=== PATIENT | female | born 2000 | race Caucasian/White ===

== ENCOUNTER 2019-09-04 11:20 | Emergency (ER) | payer OTHER, SELFPAY ==
[2019-09-04 11:56] VITALS: BP 107/57; PULSE 81; RESP 14; TEMP 36.8; O2SAT 100
--- NOTE | 2019-09-04 12:37 | ED.WOUNDLAC ---
HPI - Wound/Laceration General Chief Complaint: Wound/Laceration Stated Complaint: left foot lac Time Seen by Provider: 09/04/19 12:37 Source: patient Mode of arrival: ambulatory Limitations: no limitations History of Present Illness HPI narrative: Renée Mccann is a 18 yo female who hurt foot on bottom of R 5th toe in holder yesterday- states is swollen with pus this morning Related Data Allergies Allergy/AdvReac Type Severity Reaction Status Date / Time codeine AdvReac Intermediate Vomiting Verified 09/04/19 12:08 LACTOSE INTOLERANT AdvReac Unknown Nausea and Uncoded 09/04/19 12:08 Vomiting Review of Systems Review of Systems: Narrative: CONSTITUTIONAL: Denies fever, chills, sweats. EYES: Denies visual changes, redness, discharge. ENT: Denies rhinorrhea, congestion, sore throat, otalgia. CARDIOVASCULAR: Denies chest pain, palpitations, edema. RESPIRATORY: Denies dyspnea, wheezing, cough GASTROINTESTINAL: Denies abdominal pain, nausea, vomiting, diarrhea. GENITOURINARY: Denies dysuria, hematuria, abnormal discharge SKIN: Denies rash or itching. Right rates solar foot lack under fifth toe NEUROLOGIC: Denies numbness, or focal weakness. PSYCHIATRIC: Denies anxiety or depression. [facility] Family History Family History Mother Patient's mother is in good health Father Patient's father is in good health Social History Social History Smoking status: Never smoker Alcohol intake: never Comments At time of signature, I agree with nursing past medical, surgical, social and family history. There is no relevant family history pertinent to the presenting complaint. Exam Narrative: Exam Narrative: GENERAL: This is a well-nourished, well-developed patient, in mild distress. HEAD: normocephalic, atraumatic. EYES: Sclera clear/white. Vision is grossly intact. EARS: External ears normal. Hearing grossly intact. NOSE: External nose normal without nasal discharge, nares without redness, no rhinorrhea. THROAT: Mucous membranes moist, NECK: Neck supple, CARDIOVASCULAR: Regular rate and rhythm without murmurs, gallops, or rubs. RESPIRATORY: Clear to auscultation. Breath sounds equal bilaterally. No wheezes, rales, or rhonchi. GASTROINTESTINAL: Abdomen soft, SKIN: warm, intact with no suspicious lesions or rash, good texture and turgor.small lac to foot- solar side base 5th metatarsal NEURO: awake, alert, and oriented to person, place and time. There were no obvious focal neurologic abnormalities. Steady gait EXTREMITIES: Normal range of motion. BACK: Nontender without deformity Course Course Emergency Course: Dressing applied to toe, started on keflex Discussed cleaning of wound and not wearing closed toed shoes for the next few days so wound has chance to heal work note Vital Signs Vital signs: Vital Signs Temperature 98.3 F 09/04/19 11:56 Pulse Rate 81 09/04/19 11:56 Respiratory Rate 14 09/04/19 11:56 Blood Pressure 107/57 L 09/04/19 11:56 Pulse Oximetry 100 09/04/19 11:56 Temperature 98.3 F 09/04/19 11:56 Pulse Rate 81 09/04/19 11:56 Respiratory Rate 14 09/04/19 11:56 Blood Pressure 107/57 L 09/04/19 11:56 Pulse Oximetry 100 09/04/19 11:56 MDM - Wound/Laceration Differential Diagnosis Differential diagnosis: Likely laceration, abrasion and other Discharge Plan Discharge Clinical Impression: Laceration Patient Disposition: Home, Self-Care Condition: Stable Instructions: Antibiotic Form, Acute Wounds (DC) Prescriptions: New cephalexin [Keflex] 500 mg capsule 500 mg PO Q8H Qty: 21 RF: 0 Follow-up/Referrals: PHYSICIAN,WOUND CARE SPECIALIST [Primary Care Provider] - Stand Alone Forms: Work/School Release IP Time of Disposition: 12:47 Discharge Date/Time: 09/04/19 12:50
== END 2019-09-04 12:50 | disposition home or self-care (01) ==
PROVIDERS: Emergency Provider Nurse Practitioner
DX: S91.312A Laceration without foreign body, left foot, initial encounter (principal); X58.XXXA Exposure to other specified factors, initial encounter
CPT/HCPCS: 99213; G0463

== ENCOUNTER 2020-11-08 08:55 | Emergency (ER) | payer OTHER, SELFPAY ==
[2020-11-08 09:04] VITALS: BP 121/70; PULSE 89; RESP 17; TEMP 36.1; O2SAT 99
[2020-11-08 09:57] LABS: Basophils Absolute Auto 0.1 K/mm3 (0.0-0.1); Basophils Percent Auto 1.3 % (0.2-1.2); Eosinophils Absolute Auto 0.3 K/mm3 (0-0.3); Eosinophils Percent Auto 4.6 % (0-4.4); Hematocrit 42.4 % (37.0-47.0); Hemoglobin 13.8 g/dL (12.0-15.0); Immature Granulocyte Absolute 0.01 K/mm3 (0.00-0.031); Immature Granulocyte Percent A 0.2 % (0-0.5); Lymphocytes Absolute Auto 1.94 K/mm3 (0.9-3.2); Lymphocytes Percent Auto 35.9 % (18.3-44.2); Mean Corpuscular HGB Conc 32.5 g/dl (32-36); Mean Corpuscular Hemoglobin 28.9 pg (26-34); Mean Corpuscular Volume 88.7 fl (80-100); Mean Platelet Volume 9.9 fl (7.4-10.4); Monocytes Absolute Auto 0.5 K/mm3 (0.1-0.6); Monocytes Percent Auto 8.5 % (2.6-8.5); Neutrophils Absolute Auto 2.7 K/mm3 (1.3-6.7); Neutrophils Percent Auto 49.5 % (45.5-73.1); Platelet Count Result 301 k/mm3 (150-375); Red Blood Count 4.78 M/mm3 (4.2-5.4); Red Cell Distribution Width 12.3 % (11.5-14.5); White Blood Count 5.4 K/mm3 (4.5-10.0)
--- NOTE | 2020-11-08 09:58 | ED.GENADULT ---
HPI - General Adult General Chief complaint: Recheck/Abnormal Lab/Rx Stated complaint: Elevated BP Time Seen by Provider: 11/08/20 09:04 Source: patient Mode of arrival: ambulatory Limitations: no limitations History of Present Illness HPI narrative: Patient presents under guidance of her primary care provider for evaluation of intermittent dizziness and nausea that has been occurring intermittently over the past few days. Patient states that she was also having blood work drawn and was told that her blood pressure was elevated at 135/89. Patient made an appointment to see her primary care this morning and was told to present to the emergency department after she is elevated this morning she experienced floaters with her dizziness this morning. Patients symptoms were noted upon awakening and did not wake her from her sleep. They resolved without intervention and she does not have accompanied headache. She does not have flashes, floaters, headache, changes in hearing or vision, neurological deficits or any symptoms at this time. Patient denies her symptoms being triggered by changes in movement or temperature. Patient has not started any new medications that she believes could be the cause of her symptoms.patient denies head injury. patient stopped taking control in September. Patient denies headache, flashes or floaters at this time, nausea, vomiting, dizziness, changes in vision or hearing presently, or neurological deficits. Related Data Home Medications Medication Instructions Recorded Confirmed No Home Medications 11/08/20 11/08/20 Allergies Allergy/AdvReac Type Severity Reaction Status Date / Time codeine AdvReac Intermediate Vomiting Verified 11/08/20 09:00 LACTOSE INTOLERANT AdvReac Unknown Nausea and Uncoded 11/08/20 09:00 Vomiting Review of Systems Review of Systems: CONSTITUTIONAL: Denies fever, chills, or sweats. EYES: Intermittent floaters-now resolved denies visual changes, redness, or discharge. ENT: Denies rhinorrhea, congestion, sore throat, or otalgia. CARDIOVASCULAR: Denies chest pain, palpitations, or edema. RESPIRATORY: Denies cough or dyspnea. GASTROINTESTINAL: Intermittent nausea-now resolved denies abdominal pain, vomiting, or diarrhea. GENITOURINARY: Denies dysuria or hematuria. SKIN: Denies rash or itching. MUSCULOSKELETAL: Denies back pain, joint pain, or myalgia. NEUROLOGIC: Intermittent dizziness-now resolved denies headache, numbness, dizziness, or weakness. PSYCHIATRIC: Denies anxiety or depression. [facility] Family History Family History Mother Patient's mother is in good health Father Patient's father is in good health Social History Social History Smoking status: Never smoker Alcohol intake: never Exam Narrative: GENERAL: Well-appearing, well-nourished, and in no acute distress. Patient smiling and speaking appropriately. HEAD: Normocephalic, atraumatic. No outward signs of injury. EYES: PERRLA and EOMI. ENT: Nares clear, no rhinorrhea or epistaxis. Mucous membranes moist. Oropharynx without tonsillar hypertrophy exudate or other lesions. Bilateral TMs pearly ymers nonbulging NECK: Supple. No adenopathy or masses. CHEST: Clear to auscultation. No respiratory distress. No wheezes rales or rhonchi HEART: Regular rate and rhythm. No murmur heard. Normal peripheral pulses. ABDOMEN: Soft, nontender, nondistended, normal active bowel sounds. EXTREMITIES: Normal range of motion. No edema. SKIN: Warm, dry, no rash. NEURO: No focal deficits. Alert and oriented x3. Speech clear and appropriate. No weakness in upper or lower extremities. Face is symmetric. PSYCH: Normal mood and affect. Course Vital Signs Vital signs: Vital Signs Temperature 97.0 F L 11/08/20 09:04 Pulse Rate 89 11/08/20 09:04 Respiratory Rate 17 11/08/20 09:04 Blood Pressure 121/70 09/0
[2020-11-08 10:09] LABS: Add Urine Microscopic? YES; Alanine Aminotransferase 14 U/L (4-35); Albumin Level 4.1 g/dL (3.5-5.1); Alkaline Phosphatase 83 U/L (38-126); Anion Gap 8 mmol/L (8-16); Appearance Urine Clear (Clear); Aspartate Amino Transferase 22 U/L (14-36); Bacteria Urine Trace /hpf; Bilirubin Urine Negative (Negative); Bilirubin,Total 0.6 mg/dL (0.2-1.3); Blood Urea Nitrogen 10 mg/dL (7-17); Blood Urine 2+ (Negative); Calcium 9.6 mg/dL (8.4-10.2); Carbon Dioxide 23 mmol/L (22-30); Chloride 107 mmol/L (98-107); Color Urine Yellow (Yellow); Estimated CRCL calculation 112 ml/min; Estimated Glomerular Filt Rate > 60; Glucose 94 mg/dL (65-110); Glucose Urine UA Negative (Negative); Ketones Urine Negative (Negative); Leukocyte Esterase Ur Negative LEU/UL (Negative); Mucus Urine Rare /lpf; Nitrate Urine Negative (Negative); Potassium 4.2 mmol/L (3.4-5.0); Protein Urine Negative (Negative); Sodium 138 mmol/L (137-145); Squamous Epithelial Cell Urine Many /hpf (Few); Urobilinogen Urine Negative mg/dL (<2.0)
[2020-11-08 11:17] VITALS: BP 126/77; PULSE 72; RESP 20; O2SAT 99
== END 2020-11-08 11:18 | disposition home or self-care (01) ==
PROVIDERS: Physician Assistant; Emergency Provider Emergency Medicine
DX: R03.0 Elevated blood-pressure reading, without diagnosis of hypertension (principal)
CPT/HCPCS: 36415; 80053; 81001; 81025; 85025; 99283

== ENCOUNTER 2023-09-29 09:59 | Emergency (ER) | payer OTHER, SELFPAY ==
[2023-09-29 10:13] VITALS: BP 108/65; PULSE 73; RESP 16; TEMP 36.8; O2SAT 100
--- NOTE | 2023-09-29 10:15 | ED.GENADULT ---
HPI - General Adult General Chief complaint: Upper Respiratory Infection Stated complaint: chest pain/sob Time Seen by Provider: 09/29/23 10:23 Source: patient, RN notes reviewed and old records reviewed Mode of arrival: ambulatory Limitations: no limitations History of Present Illness HPI narrative: 23 year old female who presents to [facility] care with complaints of one week duration of headache pain, pain behind her eyes and sore throat intermittent for one week duration. Patient reports that she [place] [facility] [place] appointment this afternoon. Patient reports that she has had some mid upper chest discomfort that radiates to her back at times. Patient reports that she has felt a little short of breath since this morning with respirations, even and nonlabored no tachypnea noted SAO2 100% on room air MD complaint: one week intermittent headache sore throat and pain behind eyes Onset (ago): week(s) (one week headache, sore throat, one day shortness breath and upper chest discomfort) Severity scale (1-10): 4 Treatments prior to arrival: none Related Data Home Medications Medication Instructions Recorded Confirmed dextroamphetamine-amphetamine 5 mg 09/29/23 tablet etonogestrel 0.12 mg-ethinyl vag ring vaginal 09/29/23 estradiol 0.015 mg/24 hr vaginal ring Allergies Allergy/AdvReac Type Severity Reaction Status Date / Time codeine AdvReac Intermediate Vomiting Verified 09/29/23 10:02 LACTOSE INTOLERANT AdvReac Unknown Nausea and Uncoded 09/29/23 10:02 Vomiting Review of Systems Review of Systems: CONSTITUTIONAL: Denies malaise, chills, sweats, or fever. EYES: Denies visual changes, redness, or discharge. ENT: Reports rhinorrhea, congestion, sinus pain, otalgia and sore throat. CARDIOVASCULAR: Reports upper chest pain, no palpitations, or edema. RESPIRATORY: Reports no cough.? Denies dyspnea. GASTROINTESTINAL: Denies abdominal pain, nausea, vomiting, diarrhea SKIN: Denies rash or itching. MUSCULOSKELETAL: Denies myalgia. NEUROLOGIC: Reports headache. All systems reviewed & are unremarkable except as noted in HPI and below PMFSH Past Medical History Medical History (Updated 09/29/23 @ 11:06 by Wanda Pichardo NP) ADHD (attention deficit hyperactivity disorder) Asthma Surgical History Surgical History (Updated 09/29/23 @ 10:35 by Wanda Pichardo NP) History of tonsillectomy Previous section Family History Family History Mother Patient's mother is in good health Father Patient's father is in good health Social History Social History Smoking status: Never smoker Alcohol intake: never Comments At time of signature, agree with nursing past medical, surgical, social and family history. There is no relevant family history pertinent to the presenting complaint Exam Narrative: GENERAL: Well-appearing, well-nourished, and in no acute distress. HEAD: Normocephalic EYES: PERRLA, conjunctivae clear ENT: Nares clear, turbinates edematous and erythematous, clear discharge. Mucous membranes moist. TM pearly myers with dull light reflex bilaterally; no tragal tenderness. Oropharynx erythematous without lesions. Tonsils not present and throat without exudate, no drooling, no hoarseness, no trismus, uvula midline.post nasal drainage NECK: Supple. No lymphadenopathy CHEST: Clear to auscultation, breath sounds equal. No wheezing, rhonchi, rales, or stridor. No respiratory distress, speaks in full sentences.no cough noted SAO2 100% HEART: Regular rate and rhythm. No murmur heard. SKIN: Warm, dry, no rash. NEURO: Alert and oriented x3. PSYCH: Normal mood and affect Course Course Emergency Course: Patient is aware of diagnosis, understands and agrees to treatment plan.? Anticipatory guidance given.? Patient agrees to follow-up as directed
[2023-09-29 10:44] LABS: EDSTREPNEGPOS1 Presumptive Negative
== END 2023-09-29 11:19 | disposition home or self-care (01) ==
PROVIDERS: Emergency Provider Registered Nurse; PCP Family Medicine
DX: M94.0 Chondrocostal junction syndrome [Tietze] (principal); J45.20 Mild intermittent asthma, uncomplicated; J02.9 Acute pharyngitis, unspecified; F90.9 Attention-deficit hyperactivity disorder, unspecified type
CPT/HCPCS: 87081; 87880; 99213; G0463

== ENCOUNTER 2023-11-06 12:26 | Emergency (ER) | payer OTHER, SELFPAY ==
--- NOTE | ~2023-11-06 | XR_ITS ---
XR ankle RT min 3V 11/06/2023 13:03 INDICATION: Right ankle pain PROCEDURE: 4 views right ankle COMPARISON: No prior studies for comparison. FINDINGS: Fracture, dislocation or subluxation is not identified. The soft tissues appear within norm al limits. No foreign bodies are identified. IMPRESSION: 1: NO ACUTE BONE OR JOINT ABNORMALITY IDENTIFIED. Reviewed, dictated and finalized at location B.
--- NOTE | 2023-11-06 12:31 | ED.LOWEXIN ---
HPI - Extremity Injury (Lower) General Chief Complaint: Extremity Injury, Lower Stated Complaint: right foot injury Time Seen by Provider: 11/06/23 12:29 Source: patient Mode of arrival: ambulatory Limitations: no limitations History of Present Illness HPI Narrative: Renée is a 23-year-old female patient presenting to the clinic today with complaints of right ankle pain. She reports she was at work when a grocery cart rolled into her ankle. Has pain to the right lateral ankle that is radiating down into her pinky toe. Related Data Home Medications Medication Instructions Recorded Confirmed etonogestrel 0.12 mg-ethinyl See Rx Instructions .Route .COMPLEX 09/29/23 11/06/23 estradiol 0.015 mg/24 hr vaginal ring buspirone 10 mg tablet 10 mg PO DAILY 11/06/23 11/06/23 dextroamphetamine-amphetamine 10 10 mg PO DAILY 11/06/23 11/06/23 mg tablet gabapentin 100 mg capsule 100 mg PO DAILY 11/06/23 11/06/23 Allergies Allergy/AdvReac Type Severity Reaction Status Date / Time cephalexin [From Keflex] Allergy Unknown Unknown Verified 11/06/23 13:10 codeine AdvReac Intermediate Vomiting Verified 11/06/23 12:37 LACTOSE INTOLERANT AdvReac Unknown Nausea and Uncoded 11/06/23 12:37 Vomiting Review of Systems Review of Systems: Pertinent positives per HPI. Patient denies any fever, chills, rash, headache, visual changes, dizziness, cough, runny nose, sore throat, shortness of breath, chest pain, palpitations, nausea, vomiting, diarrhea, constipation, abdominal pain, or any urinary issues. [facility] Past Medical History Medical History ADHD (attention deficit hyperactivity disorder) Asthma Surgical History Surgical History History of tonsillectomy Previous section Family History Family History Mother Patient's mother is in good health Father Patient's father is in good health Social History Social History Smoking status: Never smoker Alcohol intake: never Comments At the time of my signature, I reviewed and agree with the nursing past medical, surgical, social, and family history. There is no relevant family history pertinent to the patient complaint. Exam Narrative: General: Well-developed, well nourished, in no apparent distress Head: Normocephalic, atraumatic. Cardio: Regular rate and rhythm, s1 and s2 normal, no murmur appreciated. Resp: Clear to auscultation bilaterally, no rhonchi, rales, wheezing or rubs. Musculoskeletal: No deformity, tender to palpation over the right lateral ankle, pain with valgus and varus testing of the right lateral ankle as well as dorsal flexion and plantar flexion grossly normal range of motion, muscle strength strong and equal, peripheral pulse strong, no edema, no cyanosis, normal gait and station Course Course Emergency Course: Portions of this record may have been created with voice recognition software. Level of Care: Express Care Visit Vital Signs Vital signs: Vital Signs Temperature 37.3 C 11/06/23 12:47 Pulse Rate 92 11/06/23 12:47 Respiratory Rate 16 11/06/23 12:47 Blood Pressure 115/70 11/06/23 12:47 Pulse Oximetry 100 11/06/23 12:47 Oxygen Delivery Room Air 11/06/23 12:47 Temperature 37.3 C 11/06/23 12:47 Pulse Rate 92 11/06/23 12:47 Respiratory Rate 16 11/06/23 12:47 Blood Pressure 115/70 11/06/23 12:47 Pulse Oximetry 100 11/06/23 12:47 Oxygen Delivery Room Air 11/06/23 12:47 Vital signs reviewed MDM - Extremity Injury (Lower) MDM Narrative Medical decision making narrative: At the time of visit patient is resting comfortably on the exam table. Patient appears to be nontoxic. Diagnostics: X-ray of the right ankle was negative for any sign of
[2023-11-06 12:47] VITALS: BP 115/70; PULSE 92; RESP 16; TEMP 37.3; O2SAT 100
== END 2023-11-06 13:32 | disposition home or self-care (01) ==
PROVIDERS: Emergency Provider Nurse Practitioner Family
DX: S90.01XA Contusion of right ankle, initial encounter (principal); W20.8XXA Other cause of strike by thrown, projected or falling object, initial encounter; F90.9 Attention-deficit hyperactivity disorder, unspecified type; J45.909 Unspecified asthma, uncomplicated
CPT/HCPCS: 73610; 99213; G0463